=== PATIENT | female | born 1965 | race Caucasian/White ===

== ENCOUNTER 2016-12-20 14:25 | Emergency (ER) | payer SELFPAY ==
[2016-12-20 14:51] VITALS: BP 179/101
--- NOTE | 2016-12-20 15:02 | UC ---
Back Pain HPI - HPI Summary HPI Summary: The patient comes in today for: 1. Right side and back pain: Onset: 2 days ago. Palliative/provocative: Breathing makes it worse. Driving or sitting in a chair makes it worse. Standing upstraight makes it feel better. No rx taken. Quality: Back: burning pain. Anterior lower right rib area: "on fire." Region: Right anterior lower rib cage with radiation to the back. Severity: 8 Time: Constant. Associated symptoms: RAshes: None. Eating: "I've not eaten much today." Gallbladder or liver disease: None. Fevers: None. Event: She was doing her job at work ("putting a shipment away"). 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 * - History of Current Complaint Chief Complaint: UCBackPain Stated Complaint: PAIN ON SIDE TO BACK AREA Time Seen by Provider: 12/20/16 14:53 Hx Obtained From: Patient Hx Last Menstrual Period: irreg - spotting for the past week + tubal ligation - Allergies/Home Medications Allergies/Adverse Reactions: Allergies Allergy/AdvReac Type Severity Reaction Status Date / Time Ketorolac AdvReac Severe Hallucinati Verified 12/20/16 14:52 ons adhesives Allergy Intermediate See Comment Uncoded 12/20/16 14:52 Home Medications: Home Medications Ascorbic Acid [Vitamin C] 1 tab PO DAILY 12/20/16 [History Confirmed 12/20/16] Atorvastatin* [Lipitor 20 MG*] 1 tab PO DAILY 12/20/16 [History Confirmed ] Cinnamon 1 tab PO DAILY 12/20/16 [History Confirmed 12/20/16] Fluticasone NASAL * [Flonase *] 1 spray BOTH NARES DAILY 12/20/16 [History Confirmed 12/20/16] Magnesium [Magimin] 1 tab PO DAILY 12/20/16 [History Confirmed 12/20/16] Metformin HCl 1 tab PO BID 12/20/16 [History Confirmed 12/20/16] Montelukast Sodium TAB* [Singulair 10 MG TAB*] 1 tab PO DAILY 12/20/16 [History Confirmed 12/20/16] Aynor-3 Fatty Acids [Fish Oil] 1 tab PO DAILY 12/20/16 [History Confirmed ] glyBURIDE TAB* [Diabeta TAB*] 1 tab PO DAILY 12/20/16 [History Confirmed ] PMH/Surg Hx/FS Hx/Imm Hx Previously Healthy: No - "allergies" Endocrine History Of: Reports: Diabetes, Dyslipidemia Denies: Thyroid Disease, Hyperthyroidism, Hypothyroidism Cardiovascular History Of: Reports: Hypertension - She states that her BP is being monitored. Systolic is usually 148/80 Sys Denies: Cardiac Disorders, Pacemaker/ICD, Myocardial Infarction, Congestive Heart Failure, Atrial Fibrillation, Deep Vein Thrombosis, Bleeding Disorders Respiratory History Of: Denies: COPD, Asthma, Bronchitis, Pneumonia, Pulmonary Embolism GI/ History Of: Denies: Gastroesophageal Reflux, Ulcer, Gastrointestinal Bleed, Gall Bladder Disease, Kidney Stones, Diverticulitis, Renal Disease, Urosepsis Neurological History Of: Denies: TIA, CVA, Dementia, Seizures, Migraine Psychological History Of: Reports: Anxiety, Depression Denies: Bipolar Disorder, Schizophrenia, Post Traumatic Stress Disorder Cancer History Of: Denies: Lung Cancer, Colorectal Cancer, Breast Cancer, Prostate Cancer, Cervical Cancer Other History Of: Negative For: HIV, Hepatitis B, Hepatitis C, Anticoagulant Therapy - Surgical History Surgical History: Yes Surgery Procedure, Year, and Place: left shoulder x2. tubal ligation - Family History Known Family History: Positive: Diabetes Negative: Cardiac Disease - Social History Occupation: Employed Full-time Alcohol Use: Occasionally Substance Use Type: None Smoking Status (MU): Never Smoked Tobacco Review of Systems Constitutional: Negative Skin: Negative Eyes: Negative ENT: Negative Respiratory: Negative Cardiovascular: Chest Pain Gastrointestinal: Negative Genitourinary: Negative Motor: Negative All Other Systems Reviewed And Are Negative: Yes Physical Exam Triage Information Reviewed: Yes Appearance: Well-Appearing, No Pain Distress, Well-Nourished Vital Signs: Initial Vital Signs Temp 98.6 F 12/20/16 14:46 Pulse 89 12/20/16 14:46 Resp 14 12/20/16 14:46 BP 179/101 12/20/16 14:46 Pulse Ox 99 12/20/16 14:46 Vital Signs Reviewed: Yes Eyes: Positive: Conjunctiva Clear. Negative: Discharge ENT: Positive: Hearing grossly normal. Negative: Pharyngeal erythema, Nasal congestion, Nasal drainage, TM bulging, TM dull, TM red, Tonsillar swelling, Tonsillar exudate Dental: Negative: Gross Decay/Caries @, Dental Fracture @ Neck: Positive: Supple, Nontender, No Lymphadenopathy. Negative: Nuchal Rigidity Respiratory: Positive: Chest non-tender, Lungs clear, No respiratory distress, No accessory muscle use. Negative: Rhonchi Cardiovascular: Positive: RRR, No Murmur Abdomen Description: Positive: Nontender, No Organomegaly, Soft. Negative: Distended, Guarding Musculoskeletal: Positive: Strength Intact, ROM Intact, No Edema, Other: - The patient had tenderness to palpation of both the lower right and left anterior rib margins. There was no rash in either area and the tenderness did not extend to the back or much if any at all along the sides. Neurological: Positive: Alert, Muscle Tone Normal Psychological: Positive: Age Appropriate Behavior, Consolable Skin: Negative: rashes, breakdown Back Pain Course/Dx - Course Course Of Treatment: Patient was told that I suspected that she has bilateral costochondritis precipitated by her work activities. Pain treatment options were complicated by her reaction to ketorolac and the fact that she is diabetic. Eventually, we agreed on a steroid burst. She states that her stomach does not tolerate NSAIDS well. She was warned that this could raise her blood sugar. - Differential Dx/Diagnosis Provider Diagnoses: costochondritis bilateral, of the lower right and left cartilages. Discharge - Discharge Plan Condition: Stable Disposition: HOME Patient Education Materials: Costochondritis (ED) Forms: *Work Release Referrals: Prince Lamar MD [Primary Care Provider] - 1 Week (Please see your primary care provider next week to see how well you are doing. If you get worse, please be seen sooner.)
== END 2016-12-20 16:03 | disposition home or self-care (01) ==
LOC: UCEAST 14:25
DX: M94.0 Chondrocostal junction syndrome [Tietze] (principal); M54.9 Dorsalgia, unspecified; E11.9 Type 2 diabetes mellitus without complications; E78.5 Hyperlipidemia, unspecified; I10 Essential (primary) hypertension; Z88.8 Allergy status to other drugs, medicaments and biological substances; Z91.048 Other nonmedicinal substance allergy status
CPT/HCPCS: 99212; G0463

== ENCOUNTER 2018-09-14 17:08 | Observation (INO) | payer OTHER ==
[2018-09-14] MEDS ORDERED: Diltiazem IV* 5 MG/ML 5 ML VIAL (for loading dose/IV Push) (25 MG) IV SLOW PU ONE (17:39)
--- NOTE | 2018-09-14 17:49 | ED ---
Hypertension - HPI Summary HPI Summary: This patient is a 53 year old female presenting to [facility] after being sent from urgent care due to elevated blood pressure and dizziness. Pt was 199/100 in triage. She states she had dizziness and general malaise today and this prompted her to go to . Pt states she has never had HTN and is on a low dose Lisinopril for kidney protective purposes as she has DM. She denies RICHTER, SOB, and CP - History of Current Complaint Chief Complaint: EDHypertension Stated Complaint: DIZZINESS/HPB/SENT FROM Time Seen by Provider: 09/14/18 17:36 Hx Obtained From: Patient Hx Last Menstrual Period: irreg - spotting for the past week + tubal ligation Onset/Duration: Still Present Timing: Constant Associated Signs & Symptoms: Dizziness - Allergies/Home Medications Allergies/Adverse Reactions: Allergies Allergy/AdvReac Type Severity Reaction Status Date / Time adhesive tape Allergy Intermediate See Comment Verified 09/14/18 20:01 ketorolac [From Toradol] Allergy Hallucinati Verified 09/14/18 20:18 ons PMH/Surg Hx/FS Hx/Imm Hx Endocrine/Hematology History: Reports: Hx Diabetes Denies: Hx Anticoagulant Therapy, Hx Thyroid Disease Cardiovascular History: Reports: Hx Hypertension - She states that her BP is being monitored. Systolic is usually 148/80 Sys Denies: Hx Congestive Heart Failure, Hx Deep Vein Thrombosis, Hx Myocardial Infarction, Hx Pacemaker/ICD Respiratory History: Denies: Hx Asthma, Hx Chronic Obstructive Pulmonary Disease (COPD), Hx Lung Cancer, Hx Pneumonia, Hx Pulmonary Embolism GI History: Denies: Hx Gall Bladder Disease, Hx Gastrointestinal Bleed, Hx Ulcer, Hx Urosepsis History: Denies: Hx Kidney Stones, Hx Renal Disease Neurological History: Denies: Hx Dementia, Hx Migraine, Hx Seizures, Hx Transient Ischemic Attacks (TIA) Psychiatric History: Reports: Hx Anxiety, Hx Depression Denies: Hx Schizophrenia, Hx Bipolar Disorder - Cancer History Hx Chemotherapy: No Hx Radiation Therapy: No - Surgical History Surgery Procedure, Year, and Place: left shoulder x2. tubal ligation Infectious Disease History: No Infectious Disease History: Denies: Hx Hepatitis, Hx Human Immunodeficiency Virus (HIV), Hx of Known/ Suspected MRSA, Hx Shingles, Hx Tuberculosis, Traveled Outside the [place] in Last 30 Days - Family History Known Family History: Positive: Diabetes Negative: Cardiac Disease - Social History Alcohol Use: Occasionally Substance Use Type: Reports: None Smoking Status (MU): Never Smoked Tobacco Review of Systems Positive: Other - general malaise Positive: Other - HTN . Negative: Chest Pain Negative: Shortness Of Breath Neurological: Other - dizziness Negative: Headache All Other Systems Reviewed And Are Negative: Yes Physical Exam - Summary Physical Exam Summary: GENERAL: Patient is a well-developed and nourished F who is lying comfortable in the stretcher. Patient is not in any acute respiratory distress. HEAD AND FACE: Normocephalic EYES: PERRLA, EOMI x 2. EARS: Hearing grossly intact. MOUTH: Oropharynx within normal limits. NECK: Supple, trachea is midline, no adenopathy, no JVD, no carotid bruit. CHEST: Symmetric, no tenderness at palpation LUNGS: Clear to auscultation bilaterally. No wheezing or crackles. CVS: Regular rate and rhythm, S1 and S2 present, no murmurs or gallops appreciated. ABDOMEN: Soft, non-tender. Bowel sounds are normal. No abdominal abnormal pulsations. EXTREMITIES: Full ROM in all major joints, no edema, no cyanosis or clubbing. NEURO: Alert and oriented x 3. No acute neurological deficits. Speech is normal and follows commands. SKIN: Dry and warm Triage Information Reviewed: Yes Vital Signs On Initial Exam: Initial Vitals Temp Pulse Resp BP Pulse Ox 98.0 F 103 16 221/109 98 09/14/18 17:10 09/14/18 17:10 09/14/18 17:10 09/14/18 17:10 09/14/18 17:10 Vital Signs Reviewed: Yes Diagnostics - Vital Signs Vital Signs Temp Pulse Resp BP Pulse Ox 09/14/18 17:36 85 10 199/103 100 09/14/18 17:35 80 16 98 09/14/18 17:10 98.0 F 103 16 221/109 98 - Laboratory Result Diagrams: 09/14/18 17:28 09/14/18 17:28 Lab Statement: Any lab studies that have been ordered have been reviewed, and results considered in the medical decision making process. - EKG 1740 Cardiac Rate: NL EKG Rhythm: Sinus Rhythm - at 77 BPM Summary of EKG Findings: nml axis and no ischemic changes. Hypertension Course/Dx - Course Assessment/Plan: This patient is a 53 year old female presenting to [facility] after being sent from urgent care due to elevated blood pressure and dizziness. Bloodwork obtained. Pt was given diltiazem and her BP improved momentarily but then began to climb again. At this point I contacted Dr. Benitez and he has accepted the patient for admission. I discussed results with patient. The patient agrees with this plan. - Diagnoses Provider Diagnoses: Hypertensive emergency - Physician Notifications Discussed Care Of Patient With: Akshat Benitez Time Discussed With Above Provider: 18:35 Discharge - Sign-Out/Discharge Documenting (check all that apply): Patient Departure - admitted Patient Received Moderate/Deep Sedation with Procedure: No - Discharge Plan Condition: Fair Disposition: ADMITTED TO [facility] - Billing Disposition and Condition Condition: FAIR Disposition: Admitted to [facility] - Attestation Statements Document Initiated by Celestinoe: Yes Documenting Scribe: Jose Cruz Key Provider For Whom Celestinoe is Documenting (Include Credential): Pamela Ricardo MD Scribe Attestation: IJose Cruz , scribed for Pamela Ricardo MD on 09/15/18 at 1807. Scribe Documentation Reviewed: Yes Provider Attestation: The documentation as recorded by the Jose Cruz narvaez accurately reflects the service I personally performed and the decisions made by me, Pamela Ricardo MD Status of Scribe Document: Viewed
[2018-09-14 17:50] LABS: ABS Basophils 0.1 10^3/ul (0-0.2); ABS Eosinophils 0.3 10^3/ul (0-0.6); ABS Lymphocytes 1.4 10^3/ul (1.0-4.8); ABS Monocytes 0.4 10^3/ul (0-0.8); ABS Neutrophils 3.6 10^3/ul (1.5-7.7); ABS Nucleated RBC 0 10^3/ul; Eosinophil % 5.3 %; Hematocrit 44 % (35-47); Hemoglobin 14.9 g/dl (12.0-16.0); Lymphocyte % 24.7 %; Mean Corpuscular HGB Conc 34 g/dl (31-36); Mean Corpuscular Hemoglobin 32 pg (27-31); Mean Corpuscular Volume 94 fL (80-97); Mean Platelet Volume 7.6 fL (7.4-10.4); Nucleated Red Blood Cells % 0; Platelet Count 312 10^3/ul (150-450); Red Blood Count 4.69 10^6/ul (4.00-5.40); Red Cell Distribution Width 12 % (10.5-15); White Blood Count 5.8 10^3/ul (3.5-10.8)
[2018-09-14 17:58] LABS: Activated Partial Thrombo Time 29.1 seconds (26.0-36.3); INR 0.82 (0.77-1.02)
[2018-09-14 18:11] LABS: Albumin 4.8 g/dL (3.2-5.2); Albumin/Globulin Ratio 1.9 (1-3); BUN/Creatinine Ratio 17.4 (8-20); Calcium 9.5 mg/dL (8.6-10.3); EGFR African American 106.9 (>60); EGFR Non-African American 88.3 (>60); Globulin 2.5 g/dL (2-4); Potassium 3.6 mmol/L (3.5-5.0); Total Bilirubin 0.7 mg/dL (0.2-1.0); Total Protein 7.3 g/dL (6.4-8.9)
[2018-09-14 18:12] LABS: Troponin I 0.01 ng/mL (<0.04)
[2018-09-14] MEDS ORDERED: Lisinopril TAB* 10 MG PO ONE (18:36)
[2018-09-14] MEDS ORDERED: hydrALAZINE IV* 20 MG/ML VIAL IV SLOW PU PRN (19:43)
[2018-09-14] MEDS ORDERED: Dextrose 50% Syringe 50 ML* 25 GM/50 ML SYRINGE IV PUSH PRN (20:27)
--- NOTE | 2018-09-14 22:37 | HP ---
CC: Dr. Prince Lamar * HISTORY AND PHYSICAL: DATE OF ADMISSION: 09/14/18 PRIMARY CARE PROVIDER: Dr. Prince Lamar. ATTENDING PHYSICIAN: Dr. Berny Gomez * (dictated by Onur Shea NP) CHIEF COMPLAINT: Dizziness. HISTORY OF PRESENT ILLNESS: Ms. Ramos is a 53-year-old female with past medical history significant for diabetes mellitus, anxiety, depression, who states that she was in her usual state of health and was shopping when she went to use the rest room, when she stood up from the toilet after urinating, she felt dizzy and had to stand up for a moment until this resolved. After that, she was feeling slightly nauseous and also today has had a feeling of generalized malaise. She denies any headache, denies any vision changes including double vision, blurry vision. She denies any urinary symptoms such as dysuria, changes in frequency, or increased urgency. Denies any fevers. She states she has chills at baseline intermittently. She denies chest pain, denies shortness of breath, denies diarrhea, denies abdominal pain. She states she went out to the car, checked her glucose while shopping; she reports they were slightly low , so she had some chocolate. She then went home and checked her blood pressure which was elevated in the 220 systolically. She called her daughter who is a nurse who recommended that she be evaluated. She then presented to urgent care. She was found to be hypertensive and they referred her to the emergency room for further evaluation. While in the emergency room in triage, her initial blood pressure was 221/109, repeat when she arrived into her room was 199/103. She had a CBC that was unremarkable and CMP that was unremarkable with the exception of a slightly elevated glucose at 120, this was nonfasting. Her troponin was 0.01. She had a chest x-ray showing no acute disease. She had a brain CT showing no acute intracranial pathology and sinus disease. She had an EKG showing a sinus rhythm at a rate of 77. She received 40 mg of lisinopril and 15 mg of diltiazem IV. She was referred to the hospitalist service for admission due to her hypertensive urgency. PAST MEDICAL HISTORY: 1. Diabetes mellitus. 2. Anxiety and depression. PAST SURGICAL HISTORY: 1. Status post left mastoid excision as a child. 2. Status post left shoulder surgery x2. 3. Status post tubal ligation. 4. Status post section. 5. Status post excision of lymph node in her left axillary. MEDICATIONS: Home medications include: 1. Cinnamon bark 500 mg oral twice daily. 2. Metformin 1000 mg oral in the morning, 500 mg oral in the evening. 3. Vitamin D3 of 1000 units oral daily. 4. Januvia 100 mg oral daily. 5. Singulair 10 mg oral daily. 6. Flonase one spray to both nares daily as needed for nasal congestion. 7. Atorvastatin 20 mg oral daily. 8. Lisinopril 10 mg oral daily. ALLERGIES: 1. TORADOL, causes hallucinations. 2. ADHESIVE TAPE. FAMILY HISTORY: She denies family history of coronary artery disease. Her mother, sisters, maternal grandmother and paternal grandmother with a history of diabetes, type 2. Great grandmother with a history of breast cancer and a paternal grandmother with a history of liver cancer. SOCIAL HISTORY: She is a former smoker, she quit smoking 30 years ago. Prior to that, she had a 15-year, 1 pack a day smoking history. She drinks 1 to 2 glasses of wine nightly. She denies recreational drug use. Her Victor Manuel Ramos will be her surrogate decision maker in the event she is unable to make decisions for herself. REVIEW OF SYSTEMS: I performed an 11-point review of systems. All the pertinent positives and negatives are mentioned in the history of present illness. The remaining systems are negative. PHYSICAL EXAMINATION GENERAL APPEARANCE: She is alert, pleasant, appears to be in no acute distress. VITAL SIGNS: Temperature 98, heart rate 98, respiratory rate 16, O2 sat 98% on room air, blood pressure 180/83. HEENT: Normocephalic, atraumatic. Pupils are equal, reactive to light. Extraocular movements are intact. NECK: Supple. There is no lymphadenopathy noted. RESPIRATORY: There is no accessory muscle use. The lungs are clear to auscultation bilateral. CARDIOVASCULAR: Regular rate and rhythm. S1, S2 present. There are no murmurs , rubs, or gallops heard. ABDOMEN: Soft, nontender, nondistended. There are bowel sounds present x4. EXTREMITIES: There is no lower extremity edema. DP and PT pulses are 2+ and symmetric. MUSCULOSKELETAL: There is no clubbing or cyanosis noted. The patient exhibits good strength in all extremities. NEUROLOGICAL: Alert and oriented x4. Cranial nerves II through XII are grossly intact. Handgrips are equal. Smile is symmetric. Tongue is midline. PSYCHOLOGICAL: Calm and cooperative. SKIN: There are no rashes or abnormalities seen on the exposed skin. DIAGNOSTIC STUDIES/LABORATORY DATA: Sodium 139, potassium 3.6, chloride 102, CO2 of 29. BUN 12, creatinine 0.69. Glucose 120. White blood cell count 5.8, hemoglobin 14.9, hematocrit 44, platelet count 312. Troponin 0.01. EKG shows sinus rhythm with a rate of 77. There are no acute signs of ischemia. There was no previous EKG for comparison. Chest x-ray: There was no radiologist read on this, but there is no active cardiopulmonary disease seen from my interpretation. Brain CT from today, radiologist's impression: No acute intracranial findings, sinus disease with near complete opacification of visualized portion of the right maxillary sinus. IMPRESSION: Ms. Ramos is a 53-year-old female with diabetes mellitus type 2, anxiety, and depression, who presents to the emergency room with complaints of dizziness. She will be admitted on observation for hypertensive urgency. ASSESSMENT/PLAN: 1. Hypertensive urgency. The patient states that she does not have a history of hypertension. She states her blood pressure is typically in the 130s to 140 systolically. She states she only takes Lisinopril for the renal protection in the setting of her diabetes. She has received 40 mg of oral lisinopril in the emergency room and her blood pressure is down a little, 170 systolically at this time. Additionally, she received 15 mg IV diltiazem. I am going to hold on further blood pressure agents at this time and allow the lisinopril to work. She will have as needed hydralazine for systolic blood pressures greater than 180, diastolic blood pressure greater than 100. If she continues to be hypertensive, we could consider adding a calcium channel carlos or diuretic to her blood pressure regimen. 2. Diabetes mellitus. I am discontinuing her 6 a.c. and h.s., going to hold her Januvia, her metformin, and place her on lispro sliding scale with meals. 3. Anxiety and depression. She is not currently on any medications. We will provide supportive care. 4. Fluids, electrolytes, and nutrition. She will be on her healthy consistent carbohydrate diet. 5. Code status. Full code. 6. DVT prophylaxis. She is at low risk, will be encouraged to ambulate. 7. Disposition. Observation. TIME SPENT: Time spent for this admission was approximately 60 minutes; greater than half of that was spent with the patient and her discussing medications, past medical history, and the events leading up to her arrival today, performing a physical examination. The case has been reviewed with the attending, Dr. Cary, who agrees with the plan of care. ONUR SHEA, PRETTY [id number]/[facility] #: [id number] MANDI
[2018-09-14] MEDS ORDERED: Cyclobenzaprine TAB* 10 MG PO PRN (22:51)
[2018-09-15] MEDS: Insulin LISPRO* 1 UNITS UNIT SUBCUT SCH ×3 (08:12→16:45)
[2018-09-15] MEDS: Montelukast Sodium TAB* 10 MG PO SCH (08:21)
[2018-09-15] MEDS ORDERED: Lisinopril TAB* 10 MG PO SCH (09:00)
--- NOTE | 2018-09-15 09:08 | PN ---
Subjective Date of Service: 09/15/18 Interval History: HD #2 on 09/15 53 yo F with PMH NIDDM and HTN who presented to urgent care with dizziness found to be in HTN emergency Overnight no acute events, VS still concerning for HTN 165/87 (from 186/96 presentation), 86, 97% RA, adequate voiding, tolerating PO. This afternoon seen and BP still a bit high she is frustrated by it and overall has been shaken by coming into the hospital, she is usually halthy. She has no more dizziness, no CP or RICHTER no vision changes, Denies any other sx other than mild anxiety. Objective Active Medications: Atorvastatin Calcium (Lipitor*) 20 mg PO BEDTIME [facility] Cyclobenzaprine HCl (Flexeril Tab*) 10 mg PO TID PRN PRN Reason: SPASMS Last Admin: 09/14/18 23:06 Dose: 10 mg Dextrose (D50w Syringe 50 Ml*) 12.5 gm IV PUSH .FOR FS < 60 - SS PRN PRN Reason: FS < 60 Hydralazine HCl (Apresoline Iv*) 5 mg IV SLOW PU Q6H PRN PRN Reason: BLOOD PRESSURE Insulin Human Lispro (Humalog*) 0 - [address] [facility]; Protocol Last Admin: 09/15/18 08:12 Dose: Not Given Lisinopril (Prinivil Tab*) 40 mg PO DAILY [facility] Last Admin: 09/15/18 08:21 Dose: 40 mg Montelukast Sodium (Singulair Tab*) 10 mg PO DAILY [facility] Last Admin: 09/15/18 08:21 Dose: 10 mg Vital Signs - 8 hr 09/15/18 09/15/18 01:10 03:45 Temperature 98.6 F Pulse Rate 86 Respiratory 20 20 Rate Blood Pressure 165/87 (mmHg) O2 Sat by Pulse 97 Oximetry Oxygen Devices in Use Now: None Appearance: well woman in bed Eyes: No Scleral Icterus Ears/Nose/Mouth/Throat: NL Teeth, Lips, Gums, Mucous Membranes Moist Neck: NL Appearance and Movements; NL JVP, Trachea Midline Respiratory: Symmetrical Chest Expansion and Respiratory Effort, Clear to Auscultation Cardiovascular: NL Sounds; No Murmurs; No JVD, RRR Abdominal: NL Sounds; No Tenderness; No Distention Lymphatic: No Cervical Adenopathy Extremities: No Edema Skin: No Rash or Ulcers Neurological: Alert and Oriented x 3 Result Diagrams: 09/14/18 17:28 09/14/18 17:28 Assess/Plan/Problems-Billing Assessment: 53 yo F with PMH NIDDM and HTN who presented to urgent care with dizziness found to be in HTN emergency - Patient Problems (1) Hypertensive urgency Current Visit: Yes Status: Acute Code(s): I16.0 - HYPERTENSIVE URGENCY SNOMED Code(s): 008217080 Comment: Emergency with dizziness on admission, BP has recuded by about 10-20 % on Lisinopril and Hydralazine pushes -Will d/c Hydralazine -Lisinopril 40mg home dose is 10mg, no real benefit in increasing FREDIS I in terms of HTN beyond 20mg so will keep on 20mg for now, add Amlodipine 10mg PO q day (2) Type 2 diabetes mellitus Current Visit: Yes Status: Acute Comment: -Holding home Metformin in favor of low dose SSI (3) DVT prophylaxis Current Visit: Yes Status: Acute Code(s): OSS7590 - SNOMED Code(s): 945314182 (4) Full code status Current Visit: Yes Status: Acute Code(s): Z78.9 - OTHER SPECIFIED HEALTH STATUS SNOMED Code(s): 712879704 Status and Disposition: Obs may be able to be discharged tonight
[2018-09-15] MEDS ORDERED: amLODIPine TAB* 5 MG PO SCH (13:00)
--- NOTE | 2018-09-15 17:38 | PN ---
Hospitalist Progress Note Date of Service: 09/15/18 Pt continues to be HTN Will d/c Amlodipine, Dilt PO q 6, Add HCTZ for now
[2018-09-15] MEDS ORDERED: Atorvastatin* 20 MG TAB PO SCH ×2 (18:00→21:00)
[2018-09-15] MEDS: Diltiazem TAB* 30 MG PO SCH (18:06)
[2018-09-15] MEDS: Hydrochlorothiazide TAB* 25 MG PO SCH (18:06)
[2018-09-16] MEDS: Diltiazem TAB* 30 MG PO SCH ×3 (00:13→11:45)
[2018-09-16] MEDS: Insulin LISPRO* 1 UNITS UNIT SUBCUT SCH (07:47)
[2018-09-16] MEDS: Montelukast Sodium TAB* 10 MG PO SCH (08:17)
[2018-09-16] MEDS: Hydrochlorothiazide TAB* 25 MG PO SCH (08:17)
[2018-09-16] MEDS ORDERED: Lisinopril TAB* 10 MG PO SCH (09:00)
--- NOTE | 2018-09-16 09:44 | PN ---
Subjective Date of Service: 09/16/18 Interval History: HD #3 on 09/16 53 yo F with PMH NIDDM and HTN who presented to urgent care with dizziness found to be in HTN emergency Overnight no acute events, VS still concerning for HTN yesterday,we changed to Dilt, HCTZ along with home dose lisinopril and pt has been better controlled, will need to undergo 2/2 to HTN work up and I will communicate with her PCP Objective Active Medications: Atorvastatin Calcium (Lipitor*) 20 mg PO BEDTIME [facility] Last Admin: 09/15/18 20:45 Dose: 20 mg Cyclobenzaprine HCl (Flexeril Tab*) 10 mg PO TID PRN PRN Reason: SPASMS Last Admin: 09/14/18 23:06 Dose: 10 mg Dextrose (D50w Syringe 50 Ml*) 12.5 gm IV PUSH .FOR FS < 60 - SS PRN PRN Reason: FS < 60 Diltiazem HCl (Cardizem Tab*) 30 mg PO Q6HR [facility] Last Admin: 09/16/18 05:52 Dose: 30 mg Hydrochlorothiazide (Hydrodiuril Tab*) 25 mg PO DAILY [facility] Last Admin: 09/16/18 08:17 Dose: 25 mg Insulin Human Lispro (Humalog*) 0 - 5 units SUBCUT AC [facility]; Protocol Last Admin: 09/16/18 07:47 Dose: Not Given Lisinopril (Prinivil Tab*) 20 mg PO DAILY [facility] Last Admin: 09/16/18 08:17 Dose: 20 mg Montelukast Sodium (Singulair Tab*) 10 mg PO DAILY [facility] Last Admin: 09/16/18 08:17 Dose: 10 mg Vital Signs - 8 hr 09/16/18 09/16/18 03:01 07:35 Temperature 98.0 F 98.1 F Pulse Rate 86 85 Respiratory 20 16 Rate Blood Pressure 146/81 148/71 (mmHg) O2 Sat by Pulse 98 98 Oximetry Oxygen Devices in Use Now: None Appearance: Pleasant woman in NAD Eyes: No Scleral Icterus Ears/Nose/Mouth/Throat: Mucous Membranes Moist Neck: NL Appearance and Movements; NL JVP Respiratory: Symmetrical Chest Expansion and Respiratory Effort, Clear to Auscultation Cardiovascular: NL Sounds; No Murmurs; No JVD, RRR Abdominal: NL Sounds; No Tenderness; No Distention, No Hepatosplenomegaly Lymphatic: No Cervical Adenopathy Extremities: No Edema Skin: No Rash or Ulcers Neurological: Alert and Oriented x 3 Result Diagrams: 09/14/18 17:28 09/14/18 17:28 Assess/Plan/Problems-Billing Assessment: 53 yo F with PMH NIDDM and HTN who presented to urgent care with dizziness found to be in HTN emergency - Patient Problems (1) Hypertensive urgency Current Visit: Yes Status: Acute Code(s): I16.0 - HYPERTENSIVE URGENCY SNOMED Code(s): 163989182 Comment: Emergency with dizziness on admission, BP has recuded 10-20% on Lisinopril and Hydralazine pushes alone -yesterday tried to optimize her oral regimen, doing well on Dilt, Lisinoril and HCTZ -Needs 2/2 HTN workup with PCP -Lisinopril 40mg home dose is 10mg, no real benefit in increasing FREDIS I in terms of HTN beyond 20mg so will keep on 20mg for now, add Diltiazem and HCTZ (2) Type 2 diabetes mellitus Current Visit: Yes Status: Acute Comment: -Holding home Metformin in favor of low dose SSI (3) DVT prophylaxis Current Visit: Yes Status: Acute Code(s): CAY3216 - SNOMED Code(s): 281065836 (4) Full code status Current Visit: Yes Status: Acute Code(s): Z78.9 - OTHER SPECIFIED HEALTH STATUS SNOMED Code(s): 117157391 Status and Disposition: DC TO HOME
[2018-09-16 11:46] VITALS: BP 155/89
--- NOTE | 2018-09-16 17:31 | DS ---
DISCHARGE SUMMARY: DATE OF ADMISSION: 09/14/18 DATE OF DISCHARGE: 09/16/18 PRIMARY DIAGNOSIS: Hypertensive urgency. SECONDARY DIAGNOSES: 1. Las-swootdw-hwudkibjw diabetes. 2. Hypertension. 3. Hyperlipidemia. 4. Seasonal allergies. 5. Chronic low back pain. MEDICATIONS ON DISCHARGE: As follows: 1. Atorvastatin 20 mg p.o. q.h.s. 2. Cyclobenzaprine 10 mg p.o. t.i.d. p.r.n. for pain. 3. Montelukast 10 mg p.o. daily. 4. Vitamin D3 1000 units p.o. daily. 5. Cinnamon bark 500 mg p.o. b.i.d. 6. Diltiazem 120 mg ER p.o. daily. 7. Fluticasone 1 spray both nares daily. 8. Lisinopril/hydrochlorothiazide combination 20/12.5 mg 1 tab p.o. daily. 9. Meloxicam 15 mg p.o. daily. 10. Metformin 1000 mg p.o. q.a.m. 11. Metformin 500 mg p.o. q.h.s. 12. Sitagliptin 100 mg p.o. daily. MEDICATION CHANGES: 1. Addition of lisinopril/hydrochlorothiazide combo medication of 20/12.5 and a discontinuation of lisinopril 10 mg, 2. Addition of diltiazem 120 mg extended release p.o. daily. HISTORY OF PRESENT ILLNESS AND HOSPITAL COURSE: The patient with above past medical history presented on 09/14/18 to the emergency room. She stated that she was in her usual state of health and was shopping. She went to use the restroom; and when she stood up from the toilet after urinating, she felt dizzy and had to stand for a moment until this resolved. After that, she started feeling nauseous and had generalized malaise. At that time, she denied any headache, vision changes, double vision, blurry vision, denied any other urinary symptoms or chest pain, denied any fevers. She denied shortness of breath, denies diarrhea or abdominal pain. She checked her sugar thinking that this was possibly part of it and her sugar was 80. She then went home and checked her blood pressure and found that it was elevated to 220 systolically. She called her daughter, who is a nurse and recommended she come to the emergency room to be evaluated. EMERGENCY ROOM COURSE: While in the emergency room, her initial blood pressure was 221/109, on repeat manually was about 200/100. She had labs that were drawn , which showed an unremarkable CBC and CMP. Her troponin was flat at 0.01. She had a chest x-ray showing no acute disease. She had a brain CT showing no acute intracranial pathology. She had an EKG done showing sinus rhythm at a rate of 77 with no evidence of ischemia. She was admitted for hypertensive urgency, after she received 40 mg of lisinopril and 15 mg IV diltiazem. Her hospital course by problem is as follows: 1. Hypertensive urgency: The patient does have a history of hypertension and is on lisinopril 10 mg p.o. daily, usually with blood pressure in the systolic 130s to 140s with descent control. She had a difficult time over the 48 hours she was placed in the hospital with control of her blood pressure medications. She was trialed on increased dose of lisinopril, then the addition of amlodipine 10 mg, which did not seem to contribute. Finally, lisinopril/ hydrochlorothiazide and extended release diltiazem were used, which controlled her blood pressure consistently to the 140s/90s. This acute change in blood pressure has no real cause. She had no evidence of end-organ damage. Because the patient is on observation status, we did not undergo a large workup for secondary causes of hypertension. I will reach out to her primary care provider , who is HUMBERTO'swapna and is Dr. Prince Lamar, I will reach out to him and discuss starting a secondary hypertension workup including a renal ultrasound for possible renal artery stenosis as well as discussing whether appropriate screening for primary aldosteronism or consult with Endocrinology is needed given she is now using 3 agents to control her blood pressure where as prior she was only using 1. She denies any subacute changes. She denies any concerning findings for rare conditions like pheo or adrenal tumor, although those can be looked into as an outpatient. I will order an outpatient renal ultrasound to be completed in the next 2 weeks at [facility] in [place] and the patient can follow up with her primary care provider to discuss whether additional labs should be done. Ultimately, her hypertension was well controlled with the addition of 2 agents and she is safe to be discharge as she is eager to get home. 2. Diabetes. She was held off of her metformin per hospital policy as well as sitagliptin. She was kept on low dose sliding scale insulin with excellent control and no acute issues. As she has chronic low back pain and her home medications were continued including Flexeril and as needed Tylenol, meloxicam was held and can be resumed on discharge. She did receive DVT prophylaxis while in the hospital with subcu heparin and had no other acute issues. She was stable for discharge to home on 09/16/18 and is retuning to work on . PHYSICAL EXAMINATION: Physical exam on day of discharge is as follows: Vital signs are notable for 146/81, afebrile at 98, pulse rate sinus in the 80s, respiratory rate 20, oxygen is 100% on room air. The patient is a pleasant woman in no acute distress, sitting up in bed, shows regular rate and rhythm with no murmurs, rubs or gallops. Lungs are clear to auscultation bilaterally. Her belly is soft and nontender and nondistended. She has normal active bowel sounds in all 4 quadrants. Extremities: She has palpable pulses with no evidence of edema. She has no overlying skin changes. No musculoskeletal complaints or tenderness on joint palpation. She has no vision changes. Her cranial nerves II through XII are grossly intact. DIAGNOSTIC STUDIES/LAB DATA: Labs on day of discharge are as follows: She has last labs done 09/15/18, which showed unremarkable BMP, sodium 139, potassium 3.6, chloride 102, BUN 29, anion gap 8, creatinine 0.69, glucose 120. LFTs normal with alk phos 64, AST 19, ALT 27. BNP is 0. CBC, which showed white blood cell count 5.8, hemoglobin 14.9, hematocrit of 44, platelets of 312. INR and APTT were done, which were negative. Blood glucose on day of discharge was 137. Imaging that was done in this hospitalization includes brain CT, which showed no acute intracranial pathology and EKG was done, which showed normal sinus rhythm with no evidence of ischemia. No other images were pursued, FOLLOW UP ISSUES: 1. Hypertension--I have ordered a renal ultrasound will be ordered on discharge for her to get at [facility] in [place] to start secondary HTN workup. She is to follow up on post discharge as one her hypertension, this is a large increase in her hypertension in a relatively short period of time. The differential for this includes just subacute worsening of her essential hypertension versus secondary cause of hypertension and because she is on observation status, we were concerned that persuing a large workup may not be covered from the inpatient setting and so we believe that it may be best for the patient to obtain workup for secondary hypertension as an outpatient. She can follow up with her primary care provider, who I will reach out to and discuss repeating labs and whether endocrine consult is appropriate if she continues to need 3 agents to control her blood pressure. Her other home medications were restarted without any complication. TIME SPENT: 45 minutes was spent in the planning and care of discharge for this patient with over half of that was spent at the bedside and housing counselor. She will be transported home with her . She and her family have no questions or concerns about her hospitalization and she is aware of the followup plan with her primary care doctor, which she will make an appointment within 2 weeks and to get renal ultrasound to review those results. If there are any questions about the care of Ms. Ramos during her hospitalization here, please do not hesitate to reach out to us directly, so we can discuss her case. Her primary care doctor will be Arabella [id number]/[facility] #: [id number] MANDI
== END 2018-09-16 12:11 | disposition home or self-care (01) ==
LOC: ED 17:08 → MEDTELE 19:40
PROVIDERS: ADMIT Internal Medicine; ATTEND Internal Medicine
DX: I16.0 Hypertensive urgency (principal); E11.9 Type 2 diabetes mellitus without complications; I10 Essential (primary) hypertension; E78.5 Hyperlipidemia, unspecified; J30.2 Other seasonal allergic rhinitis; M54.9 Dorsalgia, unspecified; G89.29 Other chronic pain; Z98.51 Tubal ligation status; R42 Dizziness and giddiness
CPT/HCPCS: 36415; 70450; 71045; 80053; 83605; 83880; 84484; 85025; 85610; 85730; 93005; 96374; 96375; 99284; A9270-GY; G0378; J0360